=== PATIENT | male | born 1995 | race Caucasian/White ===

== ENCOUNTER 2017-03-09 19:26 | Emergency (ER) | payer SELFPAY ==
[2017-03-09 19:40] VITALS: BMI 28.7
--- NOTE | 2017-03-09 21:00 | PDOC ---
History of Present Illness - General Chief Complaint: Pain Stated Complaint: GLASS STUCK IN PALM OF HAND Time Seen by Provider: 03/09/17 20:59 History Source: Patient - History of Present Illness Initial Comments: 03/09/17 21:21 21 YEAR old male c/o glass foreign body to right hand 5 weeks ago. wound healed . last tetanus 3 years ago. Past History - Past Medical History Allergies/Adverse Reactions: Allergies Allergy/AdvReac Type Severity Reaction Status Date / Time No Known Allergies Allergy Verified 03/09/17 19:38 Home Medications: Ambulatory Orders Cephalexin 250 mg PO QID #40 capsule 03/09/17 Other medical history: Pt denies - Suicide/Smoking/Psychosocial Hx Smoking History: Never smoked Have you smoked in the past 12 months: No Information on smoking cessation initiated: No Hx Alcohol Use: No Drug/Substance Use Hx: No Substance Use Type: None Review of Systems - Review of Systems Able to Perform ROS?: Yes Is the patient limited [place] proficient: No Integumentary: Yes: Other (foreign body) *Physical Exam - Vital Signs Last Vital Signs Temp Pulse Resp BP Pulse Ox 98.0 F 93 H 18 130/74 97 03/09/17 19:38 03/09/17 19:38 03/09/17 19:38 03/09/17 19:38 03/09/17 19:38 - Physical Exam General Appearance: Yes: Appropriately Dressed Extremity: positive: Other (+ 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 mild surrounding erythema, mild pus drainage noted. ) Integumentary: positive: Normal Color, Dry, Warm Neurologic: positive: Fully Oriented, Alert Medical Decision Making - Medical Decision Making 03/09/17 21:34 A: foreign body to right hand P: xray: + foreign body will refer to ortho/ hand surgery. will cover with cephalexin prompt followup with hand surgery reviewed with patient. patient verbalized understanding. strict return precautions reviewed with patient. *DC/Admit/Observation/Transfer Diagnosis at time of Disposition: Foreign body in hand Qualifiers: Encounter type: initial encounter Laterality: right Qualified Code(s): S60.551A - Superficial foreign body of right hand, initial encounter - Discharge Dispostion Disposition: HOME - Prescriptions Prescriptions: Cephalexin 250 mg PO QID #40 capsule - Referrals Referrals: Nic Blakely MD [Staff Physician] - Jani Gonzales MD [Staff Physician] - Evaristo Vale MD [Staff Physician] - - Patient Instructions Printed Discharge Instructions: DI for Removal of Foreign Body From Skin Additional Instructions: please follow up with hand surgeon as soon as possible. take cephalexin as soon as possible. monitor for signs of worsening infection. return to the ED if symptoms worsen. Print Language: INDIAN
[2017-03-09] MEDS ORDERED: CEPHALEXIN MONOHYDRATE 500 MG CAPSULE (UD) PO ONE (22:02)
[2017-03-09] MEDS ORDERED: CEPHALEXIN MONOHYDRATE 250 MG CAPSULE (FP) ONE (22:12)
[2017-03-09 22:58] VITALS: BP 118/78; PULSE 83; TEMP 98.1
== END 2017-03-09 23:01 | disposition home or self-care (01) ==
LOC: JERFT 19:26 → JER 19:26
DX: M79.5 Residual foreign body in soft tissue (principal); W45.8XXA Other foreign body or object entering through skin, initial encounter; W25.XXXA Contact with sharp glass, initial encounter; Y93.89 Activity, other specified; Y92.89 Other specified places as the place of occurrence of the external cause; Y99.8 Other external cause status
CPT/HCPCS: 73130-TC-RT; 99282-25